=== PATIENT | female | born 1970 | race Two or more races ===

== ENCOUNTER → 2023-06-21 | Outpatient (REF) | payer OTHER | LOC: M SMT 17:58 | PROVIDERS: ATTEND Physician Assistant | DX: R31.21 Asymptomatic microscopic hematuria (principal); R82.89 Other abnormal findings on cytological and histological examination of urine ==

== ENCOUNTER 2024-04-19 09:58 | Day surgery (SDC) | payer OTHER ==
[~2024-04-19] VITALS: Ht 157.5 cm; Wt 95.4 kg
[~2024-04-19 09:58] MED LIST: B-12100010 PO; BIOT1TAB6 PO; CARV3.12 PO; RAMI1.258 PO; THERTAB52 PO; VITA100093 PO; VITA500C24 PO
[2024-04-19] MEDS: NS 1,000 ML IV ONE (10:27)
[2024-04-19] MEDS ORDERED: propofoL 200 MG/20 ML VIAL As Ordered ONE (11:17)
[2024-04-19 11:55] VITALS: BP 127/71; TEMP 97.9; O2SAT 97
== END 2024-04-19 12:06 | disposition home or self-care (01) ==
LOC: M OPP 09:58
PROVIDERS: ATTEND Surgery
DX: Z12.11 Encounter for screening for malignant neoplasm of colon (principal); Z80.0 Family history of malignant neoplasm of digestive organs; D12.6 Benign neoplasm of colon, unspecified; Z79.899 Other long term (current) drug therapy; Z87.891 Personal history of nicotine dependence